=== PATIENT | male | born 1990 | race Two or more races ===

== ENCOUNTER 2019-09-05 11:40 | Emergency (ER) | payer MEDICAID ==
[~2019-09-05] VITALS: Ht 170.2 cm; Wt 93.0 kg
[2019-09-05] MEDS ORDERED: ONDANSETRON 2MG/ML, 2ML ONE (12:18)
[2019-09-05] MEDS ORDERED: HYDROmorphone 1 MG/ML, 1ML INJ ONE (12:18)
[2019-09-05] MEDS ORDERED: ONDANSETRON 2MG/ML, 2ML IVPush ONE (12:30)
[2019-09-05] MEDS ORDERED: HYDROmorphone 2 MG/ML, 1ML IVPush PRN (12:30)
[2019-09-05] MEDS ORDERED: SODIUM CHLORIDE FLUSH 10ML SYR IVF ONE (12:30)
[2019-09-05 12:31] LABS: BASOPHILS # (AUTO) 0.03 x10^3/uL (0-0.1); BASOPHILS % (AUTO) 0 % (0-1); EOSINOPHILS # (AUTO) 0.07 x10^3/uL (0-0.4); EOSINOPHILS % (AUTO) 1 % (1-7); LYMPHOCYTES # (AUTO) 1.49 x10^3/uL (1-3.4); LYMPHOCYTES % (AUTO) 12 % (22-44); MD NO; MEAN CORPUSCULAR HEMOGLOBIN 29.8 pg (27.5-34.5); MEAN CORPUSCULAR HGB CONC 33.5 g/dL (33.2-36.2); MEAN PLATELET VOLUME 9.4 fL (7.4-10.4); MONOCYTES # (AUTO) 0.33 x10^3/uL (0.2-0.8); MONOCYTES % (AUTO) 3 % (2-9); NEUTROPHILS # (AUTO) 10.11 x10^3/uL (1.8-6.8); NEUTROPHILS % (AUTO) 84 % (42-75); PLATELET COUNT 258 x10^3/uL (130-400); RED CELL DISTRIBUTION WIDTH 13.4 % (9.4-14.8)
--- NOTE | 2019-09-05 12:31 | NUR ---
PIV STARTED, LABS DRAWN, PT MEDICATED PER EMAR. PT RESTING ON GURNEY W/ CALL LIGHT IN REACH AND FAMILY AT BEDSIDE. CONNECTED TO MONITORING, VSS, CHUCKN. AWAITING CT.
--- NOTE | 2019-09-05 12:36 | NUR ---
PT PROVIDED W/ URINAL AND EDUCATED ON NEED FOR SAMPLE.
[2019-09-05 12:44] LABS: ALBUMIN 4.5 g/dL (3.4-5.0); ANION GAP 6 mmol/L (5-15); CALCIUM 9.4 mg/dL (8.5-10.1); CHLORIDE 110 mmol/L (98-107)
--- NOTE | 2019-09-05 12:45 | NUR ---
PT TO CT.
[2019-09-05 12:47] LABS: ALANINE AMINOTRANSFERASE 30 U/L (12-78); ALKALINE PHOSPHATASE 112 U/L (45-117); BILIRUBIN,TOTAL 0.9 mg/dL (0.2-1.0); CREATININE 1.13 mg/dL (0.7-1.3); TOTAL PROTEIN 8.4 g/dL (6.4-8.2)
--- NOTE | 2019-09-05 13:04 | NUR ---
Recieved report from ANMOL Condon. All questions answered. Assuming care of pt at this time.
--- NOTE | 2019-09-05 13:37 | NUR ---
Pt resting on gurney connected to NIBP cuff and continous pulse ox monitor. Spouse at bedside. Call light within reach. Bedrails up x 2 for safety measures. Pt denies pain at this time. Pt provided urine sample. UA sent to lab. BOB. No other needs expressed.
[2019-09-05 13:44] LABS: MICROSCOPIC INDICATED
--- NOTE | 2019-09-05 15:39 | NUR ---
Patient and caregiver given discharge instructions and they have confirmed that they understand the instructions. Patient ambulatory with steady gait. Pt left with d/c paperwork in [place], strainers for urine, urinal, and all personal belongings. NADN. No other needs expressed.
[2019-09-05 15:40] VITALS: BP 109/70
== END 2019-09-05 15:42 | disposition home or self-care (01) ==
LOC: ED 12:38
DX: N20.2 Calculus of kidney with calculus of ureter (principal); R11.2 Nausea with vomiting, unspecified; Z88.8 Allergy status to other drugs, medicaments and biological substances
CPT/HCPCS: 36415; 74176; 80053; 81001; 85025; 96374; 96375; 99284; J1170; J2405